=== PATIENT | male | born 1950 | race Caucasian/White ===

== ENCOUNTER 2017-11-18 15:52 | Observation (INO) | payer MEDICARE, OTHER ==
[~2017-11-18] VITALS: Ht 180.3 cm; Wt 90.6 kg
[2017-11-18 16:27] LABS: HEMOGLOBIN 12.7 g/dl (14.0-18.0); IMMATURE GRANULOCYTES 0.2 % (0.0-1.0); MEAN CELL VOLUME 93.8 fL CALC (80.0-100.0); MEAN CORPUSCULAR HGB 31.4 pG CALC (26.0-32.0); MEAN CORPUSCULAR HGB CONC 33.4 g/L CALC (32.0-36.0); NEUT# 2.46 thou/uL (1.82-7.42); RED BLOOD COUNT 4.05 mill/uL (4.70-6.10); RED CELL DISTRI WIDTH 12.3 % (11.5-15.5)
[2017-11-18 16:35] LABS: INFLUENZA A NONE DETECTED (NONE DETECT); INFLUENZA B NONE DETECTED (NONE DETECT)
[2017-11-18 16:42] LABS: ANION GAP 19 (6-22 (CALC)); BUN 15 mg/dL (8-23); BUN/CREATININE RATIO 13 (12-20 (CALC)); CARBON DIOXIDE 26 mmol/l (22-30); CHLORIDE 98 mmol/l (95-108); CREATININE 1.1 mg/dL (0.7-1.3); GFR > 60 ML/MIN (>=60 (CALC)); GFR FOR AFR.AMER. > 60 ML/MIN (>=60 (CALC)); SODIUM 140 mmol/l (137-146)
[2017-11-18 18:36] LABS: URINE BILIRUBIN - DIPSTICK NEGATIVE (NEGATIVE); URINE BLOOD DIPSTICK NEGATIVE (NEGATIVE); URINE COLOR YELLOW; URINE GLUCOSE - DIPSTICK NEGATIVE (NEGATIVE); URINE KETONE NEGATIVE (NEGATIVE); URINE LEUK ESTERASE NEGATIVE (NEGATIVE); URINE NITRITE - DIPSTICK NEGATIVE (Negative); URINE PROTEIN - DIPSTICK NEGATIVE (NEG-TRACE); URINE SPECIFIC GRAVITY 1.015; URINE UROBILINOGEN - DIPSTICK 0.2 E.U./dL (0.2)
[2017-11-18 18:40] LABS: BARBITURATES NEGATIVE (NEGATIVE); COCAINE NEGATIVE (NEGATIVE); METHADONE NEGATIVE (NEGATIVE); OXCYCODONE NEGATIVE (NEGATIVE); TETRAHYDROCANNABIONOL NEGATIVE (NEGATIVE); TRICYLIC ANTIDEPRESSANTS NEGATIVE (NEGATIVE)
[2017-11-18 18:41] LABS: URINE CLARITY CLEAR
[2017-11-18 19:09] VITALS: BP 133/79
[2017-11-18 23:48] VITALS: BP 116/69
[2017-11-19] MEDS ORDERED: LISINOPRIL PO (04:46)
[2017-11-19] MEDS ORDERED: HYDROCHLOROT PO (04:47)
[2017-11-19] MEDS ORDERED: SINGULAIR10 MG PO (04:47)
[2017-11-19] MEDS ORDERED: ASPIRIN 81 LOW81 MG PO (04:48)
[2017-11-19 06:02] LABS: HEMATOCRIT 36.9 % (39.0-50.0); HEMOGLOBIN 12.1 g/dl (14.0-18.0); MEAN CELL VOLUME 95.3 fL CALC (80.0-100.0); MEAN CORPUSCULAR HGB 31.3 pG CALC (26.0-32.0); MEAN CORPUSCULAR HGB CONC 32.8 g/L CALC (32.0-36.0); RED BLOOD COUNT 3.87 mill/uL (4.70-6.10); RED CELL DISTRI WIDTH 12.5 % (11.5-15.5)
[2017-11-19 06:19] LABS: ANION GAP 14 (6-22 (CALC)); BUN 15 mg/dL (8-23); BUN/CREATININE RATIO 15 (12-20 (CALC)); CARBON DIOXIDE 30 mmol/l (22-30); CHLORIDE 99 mmol/l (95-108); GFR > 60 ML/MIN (>=60 (CALC)); GFR FOR AFR.AMER. > 60 ML/MIN (>=60 (CALC)); MAGNESIUM 2.1 mg/dL (1.6-2.3); SODIUM 139 mmol/l (137-146)
[2017-11-19 06:22] LABS: POTASSIUM 4.4 mmol/l (3.5-5.1)
[2017-11-19 08:05] VITALS: BP 126/72
[2017-11-19 08:38] LABS: CHOLESTEROL HDL RATIO 3.8 (<4.4 (CALC))
[2017-11-19 11:15] VITALS: BP 128/72
[2017-11-19 15:20] VITALS: BP 121/72
[2017-11-19 19:00] VITALS: BP 135/67
[2017-11-20 00:04] VITALS: BP 145/79
[2017-11-20 04:33] VITALS: BP 154/87
[2017-11-20 05:22] LABS: HEMATOCRIT 35.7 % (39.0-50.0); HEMOGLOBIN 11.9 g/dl (14.0-18.0); MEAN CELL VOLUME 94.4 fL CALC (80.0-100.0); MEAN CORPUSCULAR HGB 31.5 pG CALC (26.0-32.0); MEAN CORPUSCULAR HGB CONC 33.3 g/L CALC (32.0-36.0); NEUT# 1.77 thou/uL (1.82-7.42); RED BLOOD COUNT 3.78 mill/uL (4.70-6.10); RED CELL DISTRI WIDTH 12.1 % (11.5-15.5)
[2017-11-20 05:29] LABS: ANION GAP 15 (6-22 (CALC)); BUN 11 mg/dL (8-23); BUN/CREATININE RATIO 13 (12-20 (CALC)); CARBON DIOXIDE 27 mmol/l (22-30); CHLORIDE 102 mmol/l (95-108); CREATININE 0.8 mg/dL (0.7-1.3); GFR > 60 ML/MIN (>=60 (CALC)); GFR FOR AFR.AMER. > 60 ML/MIN (>=60 (CALC)); MAGNESIUM 1.9 mg/dL (1.6-2.3); POTASSIUM 4.9 mmol/l (3.5-5.1); SODIUM 139 mmol/l (137-146)
[2017-11-20 07:30] VITALS: BP 126/73
[2017-11-20 11:30] VITALS: BP 160/84
[2017-11-20] MEDS ORDERED: Levaquin PO (12:35)
[2017-11-20] MEDS ORDERED: SINGULAIR10 MG PO (12:35)
[2017-11-20] MEDS ORDERED: LISINOPRIL10 M1 PO (12:35)
[2017-11-20] MEDS ORDERED: MEDDOSEPAK PO (12:35)
[2017-11-20] MEDS ORDERED: FLONASE AL50 MCG/ACT NAB (12:35)
[2017-11-20] MEDS ORDERED: ASPIRIN 81 LOW81 MG PO (12:35)
== END 2017-11-20 13:19 | disposition home or self-care (01) ==
LOC: ED 15:52 → ED-I 16:33 → ED 18:24 → MS2 18:25
PROVIDERS: Family Medicine; Internal Medicine; Nurse Practitioner Family; ADMIT Internal Medicine; ATTEND Internal Medicine
DX: J20.9 Acute bronchitis, unspecified (principal); J02.0 Streptococcal pharyngitis; E86.0 Dehydration; R55 Syncope and collapse; J01.90 Acute sinusitis, unspecified; I10 Essential (primary) hypertension; E87.6 Hypokalemia; K52.9 Noninfective gastroenteritis and colitis, unspecified; Z87.891 Personal history of nicotine dependence
CPT/HCPCS: Q9967

== ENCOUNTER 2017-11-23 17:31 | Observation (INO) | payer MEDICARE, OTHER ==
[~2017-11-23] VITALS: Ht 180.3 cm; Wt 86.0 kg
[~2017-11-23 17:31] MED LIST: ASPIRIN 81 LOW81 MG PO; FLONASE AL50 MCG/ACT NAB; HYDROCHLOROT PO; LISINOPRIL PO; LISINOPRIL10 M1 PO; Levaquin PO; MEDDOSEPAK PO; SINGULAIR10 MG PO
--- NOTE | 2017-11-23 17:40 | NUR ---
PT TO ROOM PER W/C
[2017-11-23 18:09] LABS: IMMATURE GRANULOCYTES 1.3 % (0.0-1.0); MEAN CELL VOLUME 93.8 fL CALC (80.0-100.0); MEAN CORPUSCULAR HGB 31.3 pG CALC (26.0-32.0); MEAN CORPUSCULAR HGB CONC 33.3 g/L CALC (32.0-36.0); NEUT# 10.43 thou/uL (1.82-7.42); RED BLOOD COUNT 4.7 mill/uL (4.70-6.10); RED CELL DISTRI WIDTH 12.5 % (11.5-15.5)
[2017-11-23 18:10] LABS: HEMATOCRIT 44.1 % (39.0-50.0); HEMOGLOBIN 14.7 g/dl (14.0-18.0)
[2017-11-23 18:26] LABS: ALBUMIN 4.7 g/dL (3.2-5.0); BILIRUBIN, TOTAL 0.7 mg/dL (0.0-1.4); POTASSIUM 4.1 mmol/l (3.5-5.1); TOTAL PROTEIN 7.9 g/dL (6.3-8.2)
[2017-11-23 18:32] LABS: CREATININE 2.2 mg/dL (0.7-1.3)
--- NOTE | 2017-11-23 18:39 | NUR ---
PT RESTING ON STRETCHER, STATES NAUSEA HAS DECREASED, PT RECEIVING FLUIDS VIA IV. IV PATENT WITH NO REDNESS OR PAIN.
--- NOTE | 2017-11-23 19:00 | NUR ---
RECEIVED REPORT FROM ASTON SANTOS. [facility] IN FOR CULTURES.
--- NOTE | 2017-11-23 19:19 | NUR ---
Dr Oconnor at bedside to examine pt
[2017-11-23 19:35] LABS: URINE BLOOD DIPSTICK NEGATIVE (NEGATIVE); URINE COLOR YELLOW; URINE GLUCOSE - DIPSTICK NEGATIVE (NEGATIVE); URINE KETONE TRACE mg/dL (NEGATIVE); URINE LEUK ESTERASE TRACE (NEGATIVE); URINE PH 5.5 (4.5-8.0); URINE PROTEIN - DIPSTICK 100 mg/dL (NEG-TRACE); URINE SPECIFIC GRAVITY 1.025; URINE UROBILINOGEN - DIPSTICK 0.2 E.U./dL (0.2)
--- NOTE | 2017-11-23 20:00 | NUR ---
TRIED TO CALL REPORT, NURSE IN ROOM WILL CALL BACK
[2017-11-23 20:04] LABS: URINE BILIRUBIN - DIPSTICK SMALL (NEGATIVE); URINE CLARITY CLEAR; URINE NITRITE - DIPSTICK POSITIVE (Negative)
--- NOTE | 2017-11-23 20:18 | NUR ---
REPORT GIVEN TO ASTON VEE
--- NOTE | 2017-11-23 20:21 | NUR ---
Admission Note Report Given to: ASTON VEE. Transported by: Wheelchair X Stretcher Transported with: X Nurse Transporter X Patent IV O2 Guest Relations Officer
--- NOTE | 2017-11-23 20:25 | NUR ---
PT.ARRIVED TO FLOOR VIA STRETCHER ACCOMPANIED BY SEN ED NURSE. PT.APPEARS TO BE IN STABLE CONDITION AT THIS TIME. PT.SELF AMBULATED TO STANDING SCALE AND TO THE BED. IS AT BEDSIDE W/PT. PT.ORIENTED TO ROOM,CALL SYSTEM, LIGHTS, TV AND BED. IV FLUIDS ARE HUNG AND ANTIBIOTICS ARE RUNNING AT THIS TIME. WILL CONTINUE W/ANTIBIOTICS AND CONTINUE IV FLUIDS ORDERED.
[2017-11-23 20:53] LABS: ALBUMIN 3.8 g/dL (3.2-5.0); BILIRUBIN, TOTAL 0.5 mg/dL (0.0-1.4); POTASSIUM 4.5 mmol/l (3.5-5.1); TOTAL PROTEIN 6.6 g/dL (6.3-8.2)
[2017-11-23 21:38] LABS: URINE SQUAMOUS EPITHELIAL CELL FEW EPI/hpf (0-FEW)
[2017-11-23 21:39] LABS: URINE BACTERIA FEW hpf
[2017-11-23 22:05] VITALS: BP 110/65
--- NOTE | 2017-11-23 23:03 | NUR ---
PT.IS BEING ADMINISTERED SECOND BOLUS AT THIS TIME. ALL ANTIBIOTICS JUST COMPLETED AT THIS TIME. PT.IS IN BED SLEEPING WITH LIGHTS OUT, NO S/S OF DISTRESS, CALL LIGHT W/IN REACH
--- NOTE | 2017-11-23 23:10 | NUR ---
[facility] CALLED TO CLARIFY ANTIBIOTIC THERAPY COMBINATION, WILL WAIT FOR CLARIFICATION FROM PHYSICIAN ON ANTIBIOTICS BEFORE ADMINISTERING. ZITHROMAX AND ROCEPHIN WERE BOTH ADMINISTERED IN ED PRIOR TO PT.REACHING THE UNIT.
[2017-11-24 00:15] VITALS: BP 120/60
--- NOTE | 2017-11-24 03:05 | NUR ---
PT.IS IN BED, IV PUMP SOUNDED. PT.REPORTS BEING UNABLE TO SLEEP. I OFFERED SNACK, DRINK, DENIED. PT.DENIES DISCOMFORT AND REPORTS THAT HIS COUGH HAS IMPROVED SINCE HE HAS BEEN HERE. PT.HAS BEEN ENCOURAGED TO CALL IF ANY NEEDS ARISE AND CALL LIGHT IS AT SIDE.
[2017-11-24 04:30] VITALS: BP 118/72
[2017-11-24 08:30] VITALS: BP 134/52
--- NOTE | 2017-11-24 08:30 | NUR ---
ASSESSMENT IS COMPLETED: IV SITE IS FREE FROM REDNESS OR EDEMA. HR IS REG, PULSES ARE STRONG X4, ABD IS SOFT WITH ACTIVE BS. TELE MONTIOR IN PLACE. CONTINUE TO OBSERVE AND MONITOR.
[2017-11-24 11:24] VITALS: BP 129/75
--- NOTE | 2017-11-24 12:30 | NUR ---
PT IS RELAXING AND WAITING FOR THE US TO BE COMPLETED. IV SITE IS FREE FROM REDNESS OR EDEMA.
[2017-11-24 14:03] LABS: MEAN CELL VOLUME 95.3 fL CALC (80.0-100.0); MEAN CORPUSCULAR HGB 31.1 pG CALC (26.0-32.0); MEAN CORPUSCULAR HGB CONC 32.6 g/L CALC (32.0-36.0); RED BLOOD COUNT 3.83 mill/uL (4.70-6.10); RED CELL DISTRI WIDTH 12.7 % (11.5-15.5)
[2017-11-24 14:04] LABS: HEMATOCRIT 36.5 % (39.0-50.0); HEMOGLOBIN 11.9 g/dl (14.0-18.0)
[2017-11-24 15:49] VITALS: BP 126/80
--- NOTE | 2017-11-24 16:45 | NUR ---
PT WENT FOR AN US AND THEN RETURNED WANTING TO HAVE A TYLENOL. CONTINUE TO OBSERVE AND MONITOR.
[2017-11-24 18:51] VITALS: BP 103/61
--- NOTE | 2017-11-24 20:15 | NUR ---
REPORT RECEIVED FROM DAY NURSE, PT'S JUST LEFT AND PT.IS HIGH FOWLERS POSITION IN BED W/LIGHTS DOWN LOW AND MUSIC PLAYING. ASSESSMENT COMPLETED AND PT.MEDICATED W/EVENING MEDS AND IV ANTIBIOTIC THERAPY. LUNG SOUNDS ARE CLEAR, PT.REPORTS COUGH SEEMS IMPROVED AND FEELS THAT BREATHING TREATMENTS "REALLY HELPED." PT.REFUSED THE STOOL SOFTENER STATING THAT HE HAD A SOFT NORMAL FOR HIM STOOL. CALL LIGHT IS W/IN REACH AND PT.HAS BEEN ENCOURAGED TO CALL IF ANY NEEDS ARISE.
[2017-11-25 00:18] VITALS: BP 100/59
--- NOTE | 2017-11-25 00:39 | NUR ---
PT.IS SLEEPING AND IV PUMP SOUNDED. IV FLUIDS REPLENISHED AND PT ASKED IF HE NEEDS ANYTHING, DENIED ANY NEEDS AT THIS TIME. LIGHTS ARE OUT AND LOW SOFT MUSIC PLAYING. CALL LIGHT IS AT SIDE.
[2017-11-25 04:00] VITALS: BP 110/65
--- NOTE | 2017-11-25 04:43 | NUR ---
PT.SLEEPING, AWOKE TO OUR VOICES. V/S ASSESSED AND FLUID PUMP CLEARED. PT.DENIES ANY NEEDS AND REPORTS "I SLEPT SO WELL LAST NIGHT. PT.IS GOING BACK TO SLEEP, BUT INSTRUCTED TO CALL IF NEEDS ARISE.
[2017-11-25 05:18] LABS: HEMATOCRIT 34.3 % (39.0-50.0); HEMOGLOBIN 11.2 g/dl (14.0-18.0); IMMATURE GRANULOCYTES 0.8 % (0.0-1.0); MEAN CELL VOLUME 94.8 fL CALC (80.0-100.0); MEAN CORPUSCULAR HGB 30.9 pG CALC (26.0-32.0); MEAN CORPUSCULAR HGB CONC 32.7 g/L CALC (32.0-36.0); NEUT# 4.7 thou/uL (1.82-7.42); RED BLOOD COUNT 3.62 mill/uL (4.70-6.10); RED CELL DISTRI WIDTH 12.5 % (11.5-15.5)
[2017-11-25 05:43] LABS: ALKALINE PHOSPHATASE 61 u/l (38-126); ANION GAP 13 (6-22 (CALC)); BILIRUBIN, TOTAL 0.4 mg/dL (0.0-1.4); BUN 15 mg/dL (8-23); CARBON DIOXIDE 26 mmol/l (22-30); CHLORIDE 107 mmol/l (95-108); MAGNESIUM 2.1 mg/dL (1.6-2.3); POTASSIUM 4.3 mmol/l (3.5-5.1); SGOT/AST 21 u/l (19-48); SGPT/ALT 45 u/l (11-66); SODIUM 142 mmol/l (137-146); TOTAL PROTEIN 5.6 g/dL (6.3-8.2)
[2017-11-25 05:44] LABS: ALBUMIN 2.9 g/dL (3.2-5.0); BUN/CREATININE RATIO 15 (12-20 (CALC)); GFR > 60 ML/MIN (>=60 (CALC)); GFR FOR AFR.AMER. > 60 ML/MIN (>=60 (CALC))
--- NOTE | 2017-11-25 07:00 | NUR ---
BEDSIDE REPORT RECEIVED BY DOLORES. PT DENIES NEEDS AT THIS TIME AND CALL LIGHT IN REACH.
[2017-11-25 07:51] VITALS: BP 133/75
--- NOTE | 2017-11-25 08:00 | NUR ---
ASSESSMENT DONE AND TELE IN PLACE . RESPS EVEN AND UNLABORED. PT DENIES PAIN AT THIS TIME. NS INFISING WELL. REINFORCED SAFETY PRECAUTIONS AND CALL LIGHT IN REACH.
[2017-11-25 11:10] VITALS: BP 122/71
--- NOTE | 2017-11-25 12:00 | NUR ---
PT IS VISITING IN ROOM WITH WITH NO S/S OF DISTRESS NOTED. PT DENIES NEEDS AT THIS TIME. CALL LIGHT IN REACH.
[2017-11-25] MEDS ORDERED: ZITHROMAX250 MG PO (12:52)
[2017-11-25 15:10] VITALS: BP 100/58
--- NOTE | 2017-11-25 18:26 | NUR ---
Discharge instructions given. Patient verbalizes understanding of same. Discharged in +.stable condition via Wheelchair to Home with staff. All belongings sent with pt.
== END 2017-11-25 18:25 | disposition home or self-care (01) ==
LOC: ED 17:31 → ED-I 18:36 → ED 18:48 → MS2 18:49
PROVIDERS: Family Medicine; Nurse Practitioner Family; ADMIT Hospitalist; ATTEND Hospitalist
DX: N17.9 Acute kidney failure, unspecified (principal); T50.2X5A Adverse effect of carbonic-anhydrase inhibitors, benzothiadiazides and other diuretics, initial encounter; T46.4X5A Adverse effect of angiotensin-converting-enzyme inhibitors, initial encounter; E86.0 Dehydration; I12.9 Hypertensive chronic kidney disease with stage 1 through stage 4 chronic kidney disease, or unspecified chronic kidney disease; N18.9 Chronic kidney disease, unspecified; K52.9 Noninfective gastroenteritis and colitis, unspecified; J32.9 Chronic sinusitis, unspecified; R13.10 Dysphagia, unspecified; D64.9 Anemia, unspecified; Z87.891 Personal history of nicotine dependence

== ENCOUNTER 2020-07-16 08:36 | Emergency (ER) | payer MEDICARE, OTHER ==
[~2020-07-16] VITALS: Ht 180.3 cm; Wt 90.0 kg
[~2020-07-16 08:36] MED LIST changes: +ZITHROMAX250 MG PO
[2020-07-16] MEDS ORDERED: ALL DAY10 MG PO (08:46)
[2020-07-16] MEDS ORDERED: PREDNISONE50 MG PO (08:46)
[2020-07-16 08:49] VITALS: BP 158/92
[2020-07-16] MEDS ORDERED: EPIPEN 2-P0.3 MG/0.3 IM (09:01)
== END 2020-07-16 09:20 | disposition home or self-care (01) ==
LOC: ED 08:36
DX: T63.481A Toxic effect of venom of other arthropod, accidental (unintentional), initial encounter (principal); I10 Essential (primary) hypertension